=== PATIENT | female | born 1960 | race Caucasian/White ===

== ENCOUNTER 2018-04-30 20:57 | Observation (INO) | payer MEDICARE, BC ==
[2018-05-01 00:18] VITALS: BMI 26.6
[2018-05-01] MEDS ORDERED: NITROGLYCERIN SL TABS 0.4 MG TAB SUBLINGUAL PRN ×2 (00:40→09:19)
[2018-05-01] MEDS ORDERED: MORPHINE SULFATE 2 MG/ML SYRINGE IVP PRN (00:55)
[2018-05-01] MEDS ORDERED: HYDROcodone/APAP 7.5-325MG 1 EACH TAB PO PRN (01:13)
[2018-05-01] MEDS: HEPARIN SOD,PORK IN 0.45% NACL 25,000 UNIT in 0.45% NACL 1 250ML.BAG IV SCH (01:54)
[2018-05-01] MEDS: NICOTINE 14MG/24HR PATCH TRANSDERM SCH ×2 (01:54→09:26)
[2018-05-01] MEDS: levETIRAcetam 500 MG TAB PO SCH ×2 (01:54→19:32)
[2018-05-01 07:11] LABS: Basophils # (A) 0.1 k/uL (0-0.2); Basophils % (A) 1 %; Eosinophils # (A) 0.2 k/uL (0-0.7); Eosinophils % (A) 3 %; HCT 47.1 % (34.0-46.0); HGB 15.8 gm/dL (11.4-16.0); Lymphocytes # (A) 3.7 k/uL (1.0-4.8); Lymphocytes % (A) 52 %; MCH 30.4 pg (25.0-35.0); MCHC 33.6 g/dL (31.0-37.0); MCV 90.5 fL (80.0-100.0); Mean Platelet Volume 7.3; Monocytes # (A) 0.4 k/uL (0-1.0); Monocytes % (A) 5 %; Neutrophils # (A) 2.6 k/uL (1.3-7.7); Neutrophils % (A) 36 %; Platelet Count 298 k/uL (150-450); WBC 7.1 k/uL (3.8-10.6)
[2018-05-01 07:24] LABS: Albumin 4.1 g/dL (3.5-5.0); Calcium 9.8 mg/dL (8.4-10.2); Total Bilirubin 0.4 mg/dL (0.2-1.3); Total Protein 6.6 g/dL (6.3-8.2)
--- NOTE | 2018-05-01 09:16 | P.CRDCN ---
History of Present Illness Consult reason: chest pain (at rest) History of present illness: 57-year-old female presenting with chest discomfort and bilateral arm discomfort that woke her up and was relieved with the first nitroglycerin fairly quickly,@[facility], [place] Shortness of breath with moderate exertion like shoveling snow but no discomfort at that time. This occurred a few weeks back History of elevated triglycerides almost upper thousand History of pancreatitis History of seizures, staring spells, history of intracranial aneurysms status post coiling 2 Current smoker No alcohol use Pain-free at this time Normal stress test last, Lexiscan Examination is normal heart sounds are normal breath sounds are clear Normal blood pressure normal heart rate 0.[address] depression lateral precordial leads Impression Angina at rest Hypertriglyceridemia with a history of pancreatitis Normal cardiac enzymes No definite ST segment abnormalities but there is a 0.[address] depression on the ECG Current smoker Plan Lipid panel Atorvastatin 40 mg by mouth daily Aspirin Coronary angiography was discussed. Stress testing was discussed. I would recommend coronary angiography and the patient is agreeable based on her symptoms Past Medical History Past Medical History: Coronary Artery Disease (CAD), COPD, CVA/TIA, Deep Vein Thrombosis (DVT), GERD/Reflux, Hyperlipidemia, Memory Impairment, Seizure Disorder Additional Past Medical History / Comment(s): States had 2-3 TIAs during aneurysm surgery, aneurysm clips x2. No sense of smell or taste since surgery. Pt states she does not know last time she had a seizure. History of Any Multi-Drug Resistant Organisms: None Reported Past Surgical History: Cholecystectomy, Hysterectomy, Tonsillectomy Additional Past Surgical History / Comment(s): BRAIN ANEURYSM SURGERY 1999. RIGHT LEG SURGERY. Past Anesthesia/Blood Transfusion Reactions: Postoperative Nausea & Vomiting ( PONV) Past Psychological History: Depression Smoking Status: Current every day smoker Past Alcohol Use History: None Reported Additional Past Alcohol Use History / Comment(s): Has smoked 1 PPD for 40 years. Past Drug Use History: None Reported - Past Family History Father Family Medical History: Chest Pain / Angina, Congestive Heart Failure (CHF), Deep Vein Thrombosis (DVT), Myocardial Infarction ([place]) Mother Family Medical History: Deep Vein Thrombosis (DVT), Renal Disease Medications and Allergies Home Medications Medication Instructions Recorded Confirmed Type Clopidogrel Bisulfate [Plavix] 75 mg PO DAILY 03/06/16 04/30/18 History Pantoprazole Sodium [Protonix] 40 mg PO DAILY 03/06/16 04/30/18 History HYDROcodone/APAP 7.5-325MG [[place] 1 tab PO TID PRN 03/21/16 04/30/18 History 7.5-325] Ibuprofen [Advil] 200 - 800 mg PO Q8HR PRN 03/21/16 04/30/18 History Budesonide/Formoterol Fumarate 2 puff INHALATION BID 04/30/18 05/01/18 History [Symbicort 80-4.5 Mcg Inhaler] Cholecalciferol (Vitamin D3) 5,000 units PO DAILY 04/30/18 04/30/18 History [Vitamin D3] Indapamide 2.5 mg PO DAILY 04/30/18 04/30/18 History Meloxicam 15 mg PO DAILY 04/30/18 04/30/18 History Montelukast [Singulair] 10 mg PO HS 04/30/18 04/30/18 History Rosuvastatin [Crestor] 20 mg PO DAILY 04/30/18 04/30/18 History levETIRAcetam [Keppra] 1,000 mg PO HS 05/01/18 04/30/18 History Allergies Allergy/AdvReac Type Severity Reaction Status Date / Time cortisone Allergy Unknown Verified 04/30/18 23:51 gabapentin [From Neurontin] Allergy Unknown Verified 04/06/16 08:14 hydrochlorothiazide Allergy Rash/Hives Verified 04/06/16 08:14 [From Dyazide] hydroxyzine Allergy Rash/Hives Verified 04/06/16 08:14 levofloxacin Allergy Rash/Hives Verified 04/30/18 23:51 Penicillins Allergy Rash/Hives Verified 04/06/16 08:14 Sulfa (Sulfonamide Allergy Rash/Hives Verified 04/06/16 08:14 Antibiotics) triamterene [From Dyazide] Allergy Unknown Verified 04/06/16 08:14 varenicline [From Chantix] Allergy Rash/Hives Verified 04/06/16 08:14 LUPIN Allergy Rash/Hives Uncoded 04/06/16 08:14 Physical Exam Vitals: Vital Signs Temp Pulse Resp BP Pulse Ox 05/01/18 04:00 60 15 111/68 96 05/01/18 00:00 58 L 15 04/30/18 23:48 97.7 F 58 L 16 130/77 95 Intake and Output 04/30/18 05/01/18 05/01/18 22:59 06:59 14:59 Other: Voiding Method Toilet # Voids 1 Weight 72.6 kg Results 05/01/18 05:17 05/01/18 05:17 Cardiac Enzymes 05/01/18 05/01/18 05/01/18 Range/Units 00:48 05:17 05:17 AST 33 (14-36) U/L Troponin I <0.012 <0.012 (0.000-0.034) ng/mL Coagulation 05/01/18 Range/Units 00:48 APTT 28.5 (22.0-30.0) sec CBC 05/01/18 Range/Units 05:17 WBC 7.1 (3.8-10.6) k/uL RBC 5.20 (3.80-5.40) m/uL Hgb 15.8 (11.4-16.0) gm/dL Hct 47.1 H (34.0-46.0) % Plt Count 298 (150-450) k/uL Comprehensive Metabolic Panel 05/01/18 Range/Units 05:17 Sodium 140 (137-145) mmol/L Potassium 4.0 (3.5-5.1) mmol/L Chloride 106 (98-107) mmol/L Carbon Dioxide 26 (22-30) mmol/L BUN 18 H (7-17) mg/dL Creatinine 0.90 (0.52-1.04) mg/dL Glucose 86 (74-99) mg/dL Calcium 9.8 (8.4-10.2) mg/dL AST 33 (14-36) U/L ALT 39 (9-52) U/L Alkaline Phosphatase 114 (38-126) U/L Total Protein 6.6 (6.3-8.2) g/dL Albumin 4.1 (3.5-5.0) g/dL Current Medications Generic Name Dose Route Start Last Admin Trade Name Freq PRN Reason Stop Dose Admin Hydrocodone Bitart/Acetaminophen 1 each 05/01/18 01:13 [place] 7.5-325 PO TID PRN Pain Budesonide/Formoterol Fumarate 2 puff 05/01/18 09:00 Symbicort 80-4.5 Mcg Inhaler INHALATION BID [facility] Heparin Sodium/Sodium Chloride 250 mls @ 8.71 mls/hr 05/01/18 02:00 05/01/18 01:54 25,000 unit/ Sodium Chloride IV 12 units/kg/hr .Q24H [facility] 8.71 mls/hr Administration Protocol 12 UNITS/KG/HR Levetiracetam 1,000 mg 05/01/18 01:30 05/01/18 01:54 Keppra PO 1,000 mg HS [facility] Administration Morphine Sulfate 2 mg 05/01/18 00:55 Morphine Sulfate (Inj) IVP Q4H PRN Chest Pain Nicotine 1 patch 05/01/18 01:30 05/01/18 01:54 Habitrol 14mg/24hr Patch TRANSDERM 1 patch DAILY [facility] Administration Nitroglycerin 0.4 mg 05/01/18 00:40 Nitrostat SUBLINGUAL Q5M PRN Chest Pain Intake and Output 04/30/18 05/01/18 05/01/18 22:59 06:59 14:59 Other: Voiding Method Toilet # Voids 1 Weight 72.6 kg 05/01/18 05:17 05/01/18 05:17
[2018-05-01] MEDS: SYMBICORT 80-4.5 MCG INHALER INHALATION SCH ×2 (09:17→20:47)
[2018-05-01] MEDS ORDERED: SODIUM CHLORIDE 0.9% 1,000 ML in EMPTY BAG 1 BAG IV ONE (09:19)
[2018-05-01] MEDS ORDERED: ATORVASTATIN 80 MG TAB PO STA (09:19)
[2018-05-01] MEDS ORDERED: ALPRAZolam 0.5 MG TAB PO PRN (09:19)
[2018-05-01] MEDS ORDERED: ALPRAZolam 0.25 MG TAB PO PRN (09:19)
[2018-05-01] MEDS ORDERED: ASPIRIN 325 MG TAB PO STA (09:19)
--- NOTE | 2018-05-01 09:19 | P.CRDCN ---
History of Present Illness Consult date: 05/01/18 Requesting physician: Yoandy E Noy Consult reason: chest pain Chief complaint: Chest pain History of present illness: This is a pleasant 57-year-old female with history of hyperlipidemia, strong family history of premature coronary artery disease in her brother, history of nicotine dependence, history of pancreatitis, no history of EtOH use. history of seizures, history of prior brain aneurysm 2 with coiling procedure done. Patient does also have history of seizures in the past, she is on Keppra. According to the patient, approximately 2 weeks ago, she was out [employer], she states that she developed a sudden onset of shortness of breath, she went into the house to sit down and relax, after about 5-10 minutes she felt better [email or web address] She did this on 3 separate occasions, each time developing symptoms of significant exertional dyspnea relieved with rest. Yesterday, patient states that she developed a discomfort in both of her arms and shoulders, they felt extremely heavy. She did call her brother who advised her to go to the emergency room for further evaluation and treatment. She went to [facility], EKG performed there showed normal sinus rhythm with nonspecific ST-T wave changes noted in the lateral leads. Patient was given one sublingual nitroglycerin on arrival and symptoms dissipated. Chest x-ray did not reveal any acute changes, CTA of the chest did not reveal any evidence of pulmonary embolism. CT of the brain was also performed which did not reveal any acute abnormality. 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 Previous aneurysm clipping. Patient did undergo a stress test in December of last year, which was negative for any reversible ischemia, the results of that of which are in the chart. Laboratory data at [place] was reviewed, sodium 143, potassium 3.8, BUN 20, creatinine 1.1, troponin 0.017, white blood cell count is normal hemoglobin 16.1 platelet count 326, d-dimer negative BNP normal. The patient was transferred here for further evaluation and treatment. EKG performed on arrival here showed a normal sinus rhythm with no acute changes. Blood pressure 130/70 with a heart rate in the 60s, 96% on room air. White blood cell count is normal, hemoglobin 15.8, platelet count 298. Sodium 140, potassium 4.0, BUN 18, creatinine 0.9. Troponins here are negative 2. At the time of my examination this morning she is currently chest pain-free. Past Medical History Past Medical History: Coronary Artery Disease (CAD), COPD, CVA/TIA, Deep Vein Thrombosis (DVT), GERD/Reflux, Hyperlipidemia, Memory Impairment, Seizure Disorder Additional Past Medical History / Comment(s): States had 2-3 TIAs during aneurysm surgery, aneurysm clips x2. No sense of smell or taste since surgery. Pt states she does not know last time she had a seizure. History of Any Multi-Drug Resistant Organisms: None Reported Past Surgical History: Cholecystectomy, Hysterectomy, Tonsillectomy Additional Past Surgical History / Comment(s): BRAIN ANEURYSM SURGERY 1999. RIGHT LEG SURGERY. Past Anesthesia/Blood Transfusion Reactions: Postoperative Nausea & Vomiting ( PONV) Past Psychological History: Depression Smoking Status: Current every day smoker Past Alcohol Use History: None Reported Additional Past Alcohol Use History / Comment(s): Has smoked 1 PPD for 40 years. Past Drug Use History: None Reported - Past Family History Father Family Medical History: Chest Pain / Angina, Congestive Heart Failure (CHF), Deep Vein Thrombosis (DVT), Myocardial Infarction ([place]) Mother Family Medical History: Deep Vein Thrombosis (DVT), Renal Disease Medications and Allergies Home Medications Medication Instructions Recorded Confirmed Type Clopidogrel Bisulfate [Plavix] 75 mg PO DAILY 03/06/16 04/30/18 History Pantoprazole Sodium [Protonix] 40 mg PO DAILY 03/06/16 04/30/18 History HYDROcodone/APAP 7.5-325MG [[place] 1 tab PO TID PRN 03/21/16 04/30/18 History 7.5-325] Ibuprofen [Advil] 200 - 800 mg PO Q8HR PRN 03/21/16 04/30/18 History Budesonide/Formoterol Fumarate 2 puff INHALATION BID 04/30/18 05/01/18 History [Symbicort 80-4.5 Mcg Inhaler] Cholecalciferol (Vitamin D3) 5,000 units PO DAILY 04/30/18 04/30/18 History [Vitamin D3] Indapamide 2.5 mg PO DAILY 04/30/18 04/30/18 History Meloxicam 15 mg PO DAILY 04/30/18 04/30/18 History Montelukast [Singulair] 10 mg PO HS 04/30/18 04/30/18 History Rosuvastatin [Crestor] 20 mg PO DAILY 04/30/18 04/30/18 History levETIRAcetam [Keppra] 1,000 mg PO HS 05/01/18 04/30/18 History Allergies Allergy/AdvReac Type Severity Reaction Status Date / Time cortisone Allergy Unknown Verified 04/30/18 23:51 gabapentin [From Neurontin] Allergy Unknown Verified 04/06/16 08:14 hydrochlorothiazide Allergy Rash/Hives Verified 04/06/16 08:14 [From Dyazide] hydroxyzine Allergy Rash/Hives Verified 04/06/16 08:14 levofloxacin Allergy Rash/Hives Verified 04/30/18 23:51 Penicillins Allergy Rash/Hives Verified 04/06/16 08:14 Sulfa (Sulfonamide Allergy Rash/Hives Verified 04/06/16 08:14 Antibiotics) triamterene [From Dyazide] Allergy Unknown Verified 04/06/16 08:14 varenicline [From Chantix] Allergy Rash/Hives Verified 04/06/16 08:14 LUPIN Allergy Rash/Hives Uncoded 04/06/16 08:14 Physical Exam Vitals: Vital Signs Temp Pulse Resp BP Pulse Ox 05/01/18 04:00 60 15 111/68 96 05/01/18 00:00 58 L 15 04/30/18 23:48 97.7 F 58 L 16 130/77 95 Intake and Output 04/30/18 05/01/18 05/01/18 22:59 06:59 14:59 Other: Voiding Method Toilet # Voids 1 Weight 72.6 kg PHYSICAL EXAMINATION: GENERAL: 57-year-old female in no acute distress at the time of my examination HEENT: Head is atraumatic, normocephalic. Pupils equal, round. Sclera anicteric. Conjunctiva are clear. Mucous membranes of the mouth are moist. Neck is supple. There is no elevated jugular venous pressure. No carotid bruit is heard. HEART EXAMINATION: Heart S1, S2 normal. No murmur or gallop heard. CHEST EXAMINATION: Lungs are clear with some fine expiratory wheezes noted ABDOMEN: Soft, nontender. Bowel sounds are heard. No organomegaly noted. EXTREMITIES: 2+ peripheral pulses with no evidence of peripheral edema and no calf tenderness noted. NEUROLOGIC patient is awake, alert and oriented 3 . . Results 05/01/18 05:17 05/01/18 05:17 Cardiac Enzymes 05/01/18 05/01/18 05/01/18 Range/Units 00:48 05:17 05:17 AST 33 (14-36) U/L Troponin I <0.012 <0.012 (0.000-0.034) ng/mL Coagulation 05/01/18 Range/Units 00:48 APTT 28.5 (22.0-30.0) sec CBC 05/01/18 Range/Units 05:17 WBC 7.1 (3.8-10.6) k/uL RBC 5.20 (3.80-5.40) m/uL Hgb 15.8 (11.4-16.0) gm/dL Hct 47.1 H (34.0-46.0) % Plt Count 298 (150-450) k/uL Comprehensive Metabolic Panel 05/01/18 Range/Units 05:17 Sodium 140 (137-145) mmol/L Potassium 4.0 (3.5-5.1) mmol/L Chloride 106 (98-107) mmol/L Carbon Dioxide 26 (22-30) mmol/L BUN 18 H (7-17) mg/dL Creatinine 0.90 (0.52-1.04) mg/dL Glucose 86 (74-99) mg/dL Calcium 9.8 (8.4-10.2) mg/dL AST 33 (14-36) U/L ALT 39 (9-52) U/L Alkaline Phosphatase 114 (38-126) U/L Total Protein 6.6 (6.3-8.2) g/dL Albumin 4.1 (3.5-5.0) g/dL Current Medications Generic Name Dose Route Start Last Admin Trade Name Freq PRN Reason Stop Dose Admin Hydrocodone Bitart/Acetaminophen 1 each 05/01/18 01:13 [place] 7.5-325 PO TID PRN Pain Budesonide/Formoterol Fumarate 2 puff 05/01/18 09:00 Symbicort 80-4.5 Mcg Inhaler INHALATION BID [facility] Heparin Sodium/Sodium Chloride 250 mls @ 8.71 mls/hr 05/01/18 02:00 05/01/18 01:54 25,000 unit/ Sodium Chloride IV 12 units/kg/hr .Q24H [facility] 8.71 mls/hr Administration Protocol 12 UNITS/KG/HR Levetiracetam 1,000 mg 05/01/18 01:30 05/01/18 01:54 Keppra PO 1,000 mg HS [facility] Administration Morphine Sulfate 2 mg 05/01/18 00:55 Morphine Sulfate (Inj) IVP Q4H PRN Chest Pain Nicotine 1 patch 05/01/18 01:30 05/01/18 01:54 Habitrol 14mg/24hr Patch TRANSDERM 1 patch DAILY [facility] Administration Nitroglycerin 0.4 mg 05/01/18 00:40 Nitrostat SUBLINGUAL Q5M PRN Chest Pain Intake and Output 04/30/18 05/01/18 05/01/18 22:59 06:59 14:59 Other: Voiding Method Toilet # Voids 1 Weight 72.6 kg 05/01/18 05:17 05/01/18 05:17 EKG Interpretations (text) EKG shows normal sinus rhythm with mild ST depression noted in the lateral leads. Assessment and Plan Plan: Assessment and plan #1 chest discomfort, suggestive of unstable angina. EKG shows normal sinus rhythm with nonspecific ST-T wave changes. Troponins are negative 2 here, troponin at [place] negative. Lexiscan performed in December was negative for any reversible ischemia. #2 hypertension #3 hyperlipidemia and hypertriglyceridemia. #4 nicotine dependence #5 nondiabetic #6 history of 2 cerebral aneurysms with prior clipping procedures #7 history of TIA during those procedures #8 family history of premature coronary artery disease in her brother who required LAD stenting in his 50s. #9 depression #10 history of seizures #11 COPD Plan We will obtain an echocardiogram with Doppler study. Continue Crestor, aspirin , Plavix, patient has been advised to undergo cardiac catheterization for more definitive diagnosis. The risks and the benefits were explained to her in detail. Further recommendations will be based on these findings and patient's clinical course. DNP note has been reviewed, I agree with a documented findings and plan of care. Patient was seen and examined.
[2018-05-01] MEDS: ATORVASTATIN 80 MG TAB PO SCH (09:44)
[2018-05-01] MEDS: CLOPIDOGREL 75 MG TAB PO SCH (09:44)
[2018-05-01] MEDS ORDERED: HEPARIN SODIUM,PORCINE 5,000 UNIT/ML 1 ML VIAL IV STA (10:43)
--- NOTE | 2018-05-01 11:15 | P.HPIM ---
History of Present Illness 57-year-old female came in with complaints of a bilateral shoulder pain restarted yesterday woke up from pain sharp in nature patient appears to have some ST depressions because of which the cardiology is concerned about unstable angina and patient is going for cardiac catheterization today. Patient has constant chest pain moderate severity nonradiating not associated with food not has some lightheadedness denied any diaphoresis not nonpruritic. He shouldn't the pain started early in the morning and continued until she was seen in [facility] where she was given nitro which appears to have helped a little bit patient does have neck issues in the past. Patient denied any fever chills cough chest x-ray did not show any pneumonic process CT of the brain was performed not sure why which did not show any significant abnormality CT angios the chest was essentially within normal limits and does have history of seizures for which she is on [facility] Review of Systems REVIEW OF SYSTEMS: CONSTITUTIONAL: No fever, no malaise, no fatigue. HEENT: No recent visual problems or hearing problems. Denied any sore throat. CARDIOVASCULAR: No orthopnea, PND, no palpitations, no syncope. PULMONARY: No shortness of breath, no cough, no hemoptysis. GASTROINTESTINAL: No diarrhea, no nausea, no vomiting, no abdominal pain. NEUROLOGICAL: No headaches, no weakness, no numbness. HEMATOLOGICAL: Denies any bleeding or petechiae. GENITOURINARY: Denies any burning micturition, frequency, or urgency. MUSCULOSKELETAL/RHEUMATOLOGICAL: Denies any joint pain, swelling, or any muscle pain. ENDOCRINE: Denies any polyuria or polydipsia. The rest of the 14-point review of systems is negative. Past Medical History Past Medical History: Coronary Artery Disease (CAD), COPD, CVA/TIA, Deep Vein Thrombosis (DVT), GERD/Reflux, Hyperlipidemia, Memory Impairment, Seizure Disorder Additional Past Medical History / Comment(s): States had 2-3 TIAs during aneurysm surgery, aneurysm clips x2. No sense of smell or taste since surgery. Pt states she does not know last time she had a seizure. History of Any Multi-Drug Resistant Organisms: None Reported Past Surgical History: Cholecystectomy, Hysterectomy, Tonsillectomy Additional Past Surgical History / Comment(s): BRAIN ANEURYSM SURGERY 1999. RIGHT LEG SURGERY. Past Anesthesia/Blood Transfusion Reactions: Postoperative Nausea & Vomiting ( PONV) Past Psychological History: Depression Smoking Status: Current every day smoker Past Alcohol Use History: None Reported Additional Past Alcohol Use History / Comment(s): Has smoked 1 PPD for 40 years. Past Drug Use History: None Reported - Past Family History Father Family Medical History: Chest Pain / Angina, Congestive Heart Failure (CHF), Deep Vein Thrombosis (DVT), Myocardial Infarction ([place]) Mother Family Medical History: Deep Vein Thrombosis (DVT), Renal Disease Medications and Allergies Home Medications Medication Instructions Recorded Confirmed Type Clopidogrel Bisulfate [Plavix] 75 mg PO DAILY 03/06/16 05/01/18 History HYDROcodone/APAP 7.5-325MG [[place] 1 tab PO TID PRN 03/21/16 05/01/18 History 7.5-325] Indapamide 2.5 mg PO DAILY 04/30/18 05/01/18 History Meloxicam 15 mg PO DAILY 04/30/18 05/01/18 History Montelukast [Singulair] 10 mg PO HS 04/30/18 05/01/18 History Rosuvastatin [Crestor] 20 mg PO DAILY 04/30/18 05/01/18 History QUEtiapine [SEROquel] 50 mg PO HS 05/01/18 05/01/18 History Triamcinolone 0.1% Cream [Kenalog 1 applicatio TOPICAL BID 05/01/18 05/01/18 History 0.1% Cream] levETIRAcetam [Keppra] 1,000 mg PO HS 05/01/18 05/01/18 History traZODone HCL [Desyrel] 100 mg PO HS 05/01/18 05/01/18 History Allergies Allergy/AdvReac Type Severity Reaction Status Date / Time cortisone Allergy Unknown Verified 05/01/18 10:14 gabapentin [From Neurontin] Allergy Unknown Verified 05/01/18 10:14 hydrochlorothiazide Allergy Rash/Hives Verified 05/01/18 10:14 [From Dyazide] hydroxyzine Allergy Rash/Hives Verified 05/01/18 10:14 levofloxacin Allergy Rash/Hives Verified 05/01/18 10:14 Penicillins Allergy Rash/Hives Verified 05/01/18 10:14 Sulfa (Sulfonamide Allergy Rash/Hives Verified 05/01/18 10:14 Antibiotics) triamterene [From Dyazide] Allergy Unknown Verified 05/01/18 10:14 varenicline [From Chantix] Allergy Rash/Hives Verified 05/01/18 10:14 LUPIN Allergy Rash/Hives Uncoded 04/06/16 08:14 Physical Exam Vitals: Vital Signs Temp Pulse Resp BP Pulse Ox 05/01/18 10:55 98.3 F 73 16 123/73 93 L 05/01/18 08:00 97.9 F 63 16 142/77 95 05/01/18 04:00 60 15 111/68 96 05/01/18 00:00 58 L 15 04/30/18 23:48 97.7 F 58 L 16 130/77 95 Intake and Output 04/30/18 05/01/18 05/01/18 22:59 06:59 14:59 Intake Total 76.213 Balance 76.213 Intake: Intake, IV Titration 76.213 Amount Heparin Sod,Pork in 0.45% 76.213 NaCl 25,000 unit In 0.45 % NaCl 1 250ml.bag @ 12 UNITS/KG/HR 8.71 mls/hr IV .Q24H [facility] Rx#: [id number] Other: Voiding Method Toilet Toilet # Voids 1 Weight 72.6 kg PHYSICAL EXAMINATION: GENERAL: The patient is alert and oriented x3, not in any acute distress. Well developed, well nourished. HEENT: Pupils are round and equally reacting to light. EOMI. No scleral icterus. No conjunctival pallor. Normocephalic, atraumatic. No pharyngeal erythema. No thyromegaly. CARDIOVASCULAR: S1 and S2 present. No murmurs, rubs, or gallops. PULMONARY: Chest is clear to auscultation, no wheezing or crackles. ABDOMEN: Soft, nontender, nondistended, normoactive bowel sounds. No palpable organomegaly. MUSCULOSKELETAL: No joint swelling or deformity. EXTREMITIES: No cyanosis, clubbing, or pedal edema. NEUROLOGICAL: Gross neurological examination did not reveal any focal deficits. SKIN: No rashes. Results CBC & Chem 7: 05/01/18 05:17 05/01/18 05:17 Labs: Abnormal Lab Results - Last 24 Hours (Table) 12/27/18 12/27/18 12/27/18 Range/Units 05:17 05:17 09:18 Hct 47.1 H (34.0-46.0) % APTT 35.7 H (22.0-30.0) sec BUN 18 H (7-17) mg/dL Thrombosis Risk Factor Assmnt - Choose All That Apply Any of the Below Risk Factors Present?: Yes Each Factor Represents 1 point: Abnormal pulmonary function (COPD), Age 41-60 years Other Risk Factors: Yes Each Risk Factor Represents 3 Points: Family history of DVT/PE, History of DVT/ PE Other congenital or acquired thrombophilia - If yes, enter type in comment: No Thrombosis Risk Factor Assessment Total Risk Factor Score: 8 Thrombosis Risk Factor Assessment Level: High Risk Assessment and Plan Plan: Chest pain with EKG changes ST depressions because of concerning for unstable angina patient is going for cardiac catheterization today patient's troponins were negative, Lexiscan that was done month of and negative for reversible ischemia, plan is to can you with antiplatelet therapy chronic catheterization today further management depending on the cardiac catheterization results -Hypertension -Hyperlipidemia -Nicotine dependence counseling was provided regarding this -History of TIA in the past with the cerebral aneurysms and clipping in the past -Depression -History of seizures continue with her home medications -COPD without any acute exacerbation -Chronic neck pain and degenerative joint disease
[2018-05-01] MEDS ORDERED: IV FLUID CONTINUATION 900 ML IV ONE (12:05)
[2018-05-01] MEDS ORDERED: MIDAZOLAM 2 MG/2 ML VIAL IV ONE (12:23)
[2018-05-01] MEDS ORDERED: fentaNYL (PF) 50 MCG/ML 2 ML AMP IV ONE (12:23)
[2018-05-01] MEDS ORDERED: LIDOCAINE 1% INJ 10MG/ML (20 ML MDV) SQ ONE ×2 (12:24)
[2018-05-01] MEDS ORDERED: IOPAMIDOL-370 125ML BTL INJ ONE (12:36)
[2018-05-01] MEDS ORDERED: RX INFO: IV CONTRAST WAS GIVEN 1 EACH MISC MISCELLANE PRN (12:41)
--- NOTE | 2018-05-01 12:46 | P.CARDCATH ---
Date of Procedure: 05/01/18 Preoperative Diagnosis: Unstable angina Postoperative Diagnosis: Normal coronary arteries Operative Findings: HISTORY: This is a 57-year-old female with multiple risk factors who was admitted to the hospital with chest pains suggestive of unstable angina. Patient was evaluated by Dr. Londono and a cardiac catheterization is requested for further diagnosis. CONSENT:I have discussed the risks, benefits and alternative therapies for the above-mentioned procedure and for both sedation/analgesia as well as necessary blood product administration, if indicated, as they pertain to this patient. The patient has indicated understanding and acceptance of the risks and procedures discussed. PROCEDURE: Patient was brought to the lab in a fasting state. Patient was given some IV sedation. The right groin is infiltrated with lidocaine and right femoral artery was entered using Seldinger technique. A 6-Bhutanese catheter was left in place and selective coronary arteriography and left ventriculography was performed. Patient tolerated the procedure well. Femoral angiogram was performed and Angio-Seal was applied for hemostasis. No immediate complications were noted and patient was transferred to [facility] in a stable condition Conscious Sedation: Versed 1mg Fentanyl 25 g Duration 19minutes HEMODYNAMICS: The aortic pressure is about 137/88. Left ankle end-diastolic pressure is about 8. There was no gradient across the aortic valve SELECTIVE CORONARY ARTERIOGRAPHY: LEFT MAIN: Normal length and free of occlusive disease THE LEFT ANTERIOR DESCENDING CORONARY ARTERY:. This is a fair caliber vessel giving rise to small diagonal septal branches. The LAD reaches the apex and wraps around it. There is no obstructive disease in the LAD THE LEFT CIRCUMFLEX AND IS CORONARY ARTERY:. This is a moderate caliber vessel giving rise to 2 OM branches and seemed to be codominant free of any occlusive disease THE RIGHT CORONARY ARTERY:. This is a codominant vessel giving rise to good-sized PDA and PLV. Free of any occlusive disease LEFT VENTRICULOGRAPHY:. This revealed normal-sized cardiac silhouette with good systolic function without any segmental wall motion defects FINAL IMPRESSION: Normal coronary arteries. Normal LV function PLAN:. Symptomatically medical therapy and evaluation for the source of pain PROGNOSIS:. Good
[2018-05-01] MEDS: SODIUM CHLORIDE 0.9% 1,000 ML IV SCH (16:02)
--- NOTE | 2018-05-01 19:36 | ECHOF ---
Referral Reason:chest pain MEASUREMENTS -------- HEIGHT: 165.1 cm WEIGHT: 72.6 kg BP: RVIDd: 2.9 cm (< 3.3) IVSd: 1.0 cm (0.6 - 1.1) LVIDd: 4.3 cm (3.9 - 5.3) LVPWd: 1.0 cm (0.6 - 1.1) IVSs: 1.5 cm LVIDs: 2.4 cm LVPWs: 1.6 cm LAESV Index (A-L): 18.41 ml/m Ao Diam: 3.6 cm (2.0 - 3.7) AV Cusp: 1.8 cm (1.5 - 2.6) LA Diam: 3.1 cm (2.7 - 3.8) MV EXCURSION: 15.618 mm (> 18.000) MV EF SLOPE: 88 mm/s (70 - 150) EPSS: 0.8 cm MV E Sony: 0.47 m/s MV DecT: 277 ms MV A Sony: 0.79 m/s MV E/A Ratio: 0.60 RAP: 15.00 mmHg RVSP: 18.15 mmHg FINDINGS -------- Sinus rhythm. This was a technically good study. The left ventricular size is normal. Left ventricular wall thickness is normal. Overall left vent ricular systolic function is low-normal with, an EF between 50 - 55 %. The right ventricle is normal in size and function. The left atrium is normal in size. The right atrium is normal in size. The aortic valve is trileaflet, and appears structurally normal. No aortic stenosis or regurgitation. The mitral valve leaflets are mildly thickened. There is trace mitral regurgitation. Trace tricuspid regurgitation present. The right ventricular systolic pressure, as measured by Dopp ler, is 18.15mmHg. Pulmonic valve appears structurally normal. The aortic root size is normal. The inferior vena cava is mildly dilated. The pericardium is normal. CONCLUSIONS -------- 1. Sinus rhythm. 2. This was a technically good study. 3. The left ventricular size is normal. 4. Left ventricular wall thickness is normal. 5. Overall left ventricular systolic function is low-normal with, an EF between 50 - 55 %. 6. The right ventricle is normal in size and function. 7. The left atrium is normal in size. 8. The right atrium is normal in size. 9. The aortic valve is trileaflet, and appears structurally normal. No aortic stenosis or regurgitati on. 10. The mitral valve leaflets are mildly thickened. 11. There is trace mitral regurgitation. 12. Trace tricuspid regurgitation present. 13. The right ventricular systolic pressure, as measured by Doppler, is 18.15mmHg. 14. Pulmonic valve appears structurally normal. 15. The aortic root size is normal. 16. The inferior vena cava is mildly dilated. 17. The pericardium is normal. VPK TEACHER: Lima Pisano RDCS
[2018-05-01 19:41] VITALS: RESP 18
[2018-05-01] MEDS ORDERED: MONTELUKAST 10 MG TAB PO SCH (21:00)
[2018-05-02] MEDS: SODIUM CHLORIDE 0.9% 1,000 ML IV SCH (02:53)
[2018-05-02] MEDS: HEPARIN SOD,PORK IN 0.45% NACL 25,000 UNIT in 0.45% NACL 1 250ML.BAG IV SCH (02:53)
[2018-05-02 07:13] LABS: Cholesterol 114 mg/dL (<200); HDL Cholesterol 39 mg/dL (40-60); LDL Cholesterol,Calculated 30 mg/dL (0-99); Triglycerides 225 mg/dL (<150)
[2018-05-02] MEDS ORDERED: PANTOPRAZOLE 40 MG TABLET PO SCH (07:30)
[2018-05-02] MEDS: CLOPIDOGREL 75 MG TAB PO SCH (08:33)
[2018-05-02] MEDS: ATORVASTATIN 80 MG TAB PO SCH (08:33)
[2018-05-02] MEDS: NICOTINE 14MG/24HR PATCH TRANSDERM SCH (08:33)
[2018-05-02] MEDS: SYMBICORT 80-4.5 MCG INHALER INHALATION SCH (08:35)
[2018-05-02] MEDS ORDERED: ASPIRIN 81 MG PO SCH (09:00)
[2018-05-02 09:48] VITALS: BP 115/72; PULSE 75; TEMP 97.8
--- NOTE | 2018-05-02 11:51 | P.DS ---
Providers Date of admission: 04/30/18 23:44 Attending physician: Yoandy Villafuerte MD Consults: 05/01/18 00:39 Consult Physician Routine Consulting Provider: Matt Byers Consult Reason/Comments: unstable angina Do you want consulting provider notified?: Yes, Notify in am Primary care physician: Stated None Hospital Course: 57-year-old female admitted for chest pain patient has some history depressions there was concern for unstable angina because of which patient underwent cardiac catheterization which did not show any stent table atherosclerotic coronary vascular disease patient will be discharged today patient's pain was probably from her degenerative neck disease for which the patient will need outpatient follow-up physical therapy and a patent nonsteroidal anti- inflammatory vacations. PHYSICAL EXAMINATION: GENERAL: The patient is alert and oriented x3, not in any acute distress. Well developed, well nourished. HEENT: Pupils are round and equally reacting to light. EOMI. No scleral icterus. No conjunctival pallor. Normocephalic, atraumatic. No pharyngeal erythema. No thyromegaly. CARDIOVASCULAR: S1 and S2 present. No murmurs, rubs, or gallops. PULMONARY: Chest is clear to auscultation, no wheezing or crackles. ABDOMEN: Soft, nontender, nondistended, normoactive bowel sounds. No palpable organomegaly. MUSCULOSKELETAL: No joint swelling or deformity. EXTREMITIES: No cyanosis, clubbing, or pedal edema. NEUROLOGICAL: Gross neurological examination did not reveal any focal deficits. SKIN: No rashes. please refer to my dictation of H&P from yesterday for further details of hospitalization course and her other medical problems and that management Plan - Discharge Summary Discharge Rx Participant: No New Discharge Prescriptions: No Action Clopidogrel Bisulfate [Plavix] 75 mg PO DAILY HYDROcodone/APAP 7.5-325MG [[place] 7.5-325] 1 tab PO TID PRN PRN Reason: Pain Montelukast [Singulair] 10 mg PO HS Rosuvastatin [Crestor] 20 mg PO DAILY Indapamide 2.5 mg PO DAILY Meloxicam 15 mg PO DAILY levETIRAcetam [Keppra] 1,000 mg PO HS Triamcinolone 0.1% Cream [Kenalog 0.1% Cream] 1 applicatio TOPICAL BID QUEtiapine [SEROquel] 50 mg PO HS traZODone HCL [Desyrel] 100 mg PO HS Discharge Medication List Clopidogrel Bisulfate [Plavix] 75 mg PO DAILY 03/06/16 [History] HYDROcodone/APAP 7.5-325MG [[place] 7.5-325] 1 tab PO TID PRN 03/21/16 [History] Indapamide 2.5 mg PO DAILY 04/30/18 [History] Meloxicam 15 mg PO DAILY 04/30/18 [History] Montelukast [Singulair] 10 mg PO HS 04/30/18 [History] Rosuvastatin [Crestor] 20 mg PO DAILY 04/30/18 [History] QUEtiapine [SEROquel] 50 mg PO HS 05/01/18 [History] Triamcinolone 0.1% Cream [Kenalog 0.1% Cream] 1 applicatio TOPICAL BID 05/01/18 [History] levETIRAcetam [Keppra] 1,000 mg PO HS 05/01/18 [History] traZODone HCL [Desyrel] 100 mg PO HS 05/01/18 [History] Follow up Appointment(s)/Referral(s): Luis A Londono MD [STAFF PHYSICIAN] - 05/16/18 2:30 pm (See Dr. Bowden/Elly Nunez within 2 weeks.) Ema Monson PAC [REFERRING] - 05/13/18 1:00 pm (Keep previous follow up appointment, call if you would like to be seen sooner.) Patient Instructions/Handouts: *Surgery [facility] - After Heart Catheterization - Space Control Supervisor Instructions, Heart Healthy Diet (DC), Lipid Profile (GEN) Discharge Disposition: HOME SELF-CARE
--- NOTE | 2018-05-02 12:04 | P.PN ---
Subjective Progress Note Date: 05/02/18 This is a pleasant 57-year-old female with history of hyperlipidemia, strong family history of premature coronary artery disease in her brother, history of nicotine dependence, history of pancreatitis, no history of EtOH use. history of seizures, history of prior brain aneurysm 2 with coiling procedure done. Patient does also have history of seizures in the past, she is on Keppra. 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 She did this on 3 separate occasions, each time developing symptoms of significant exertional dyspnea relieved with rest. Yesterday, patient states that she developed a discomfort in both of her arms and shoulders, they felt extremely heavy. She did call her brother who advised her to go to the emergency room for further evaluation and treatment. She went to [facility], EKG performed there showed normal sinus rhythm with nonspecific ST-T wave changes noted in the lateral leads. Patient was given one sublingual nitroglycerin on arrival and symptoms dissipated. Chest x-ray did not reveal any acute changes, CTA of the chest did not reveal any evidence of pulmonary embolism. CT of the brain was also performed which did not reveal any acute abnormality. 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 Previous aneurysm clipping. Patient did undergo a stress test in December of last year, which was negative for any reversible ischemia, the results of that of which are in the chart. Laboratory data at [facility] was reviewed, sodium 143, potassium 3.8, BUN 20, creatinine 1.1, troponin 0.017, white blood cell count is normal hemoglobin 16.1 platelet count 326, d-dimer negative BNP normal. The patient was transferred here for further evaluation and treatment. EKG performed on arrival here showed a normal sinus rhythm with no acute changes. Blood pressure 130/70 with a heart rate in the 60s, 96% on room air. White blood cell count is normal, hemoglobin 15.8, platelet count 298. Sodium 140, potassium 4.0, BUN 18, creatinine 0.9. Troponins here are negative 2. At the time of my examination this morning she is currently chest pain-free. 05/02/2018 Patient was seen and examined this morning, underwent cardiac catheterization yesterday which did not reveal any significant obstructive coronary artery disease. Hemodynamically stable. Echocardiogram with Doppler study revealed a normal left ventricular systolic function. Objective - Vital Signs Vital signs: Vital Signs Temp 97.8 F 05/02/18 08:20 Pulse 75 05/02/18 08:20 Resp 18 05/02/18 08:20 BP 115/72 05/02/18 08:20 Pulse Ox 92 L 05/02/18 08:20 Intake & Output 05/01/18 05/02/18 05/02/18 18:59 06:59 18:59 Intake Total 701.213 600 240 Balance 701.213 600 240 Weight 72 kg Intake: IV 100 Intake, IV Titration 601.213 600 Amount Heparin Sod,Pork in 0.45% 76.213 NaCl 25,000 unit In 0.45 % NaCl 1 250ml.bag @ 12 UNITS/KG/HR 8.71 mls/hr IV .Q24H [facility]IS Rx#: [id number] Sodium Chloride 0.9% 1, 525 600 000 ml @ 75 mls/hr IV . [id number] LUIS Rx#:[id number] Oral 240 Other: Voiding Method Toilet # Voids 2 - Exam PHYSICAL EXAMINATION: GENERAL: 57-year-old female in no acute distress at the time of my examination HEENT: Head is atraumatic, normocephalic. Pupils equal, round. Sclera anicteric. Conjunctiva are clear. Mucous membranes of the mouth are moist. Neck is supple. There is no elevated jugular venous pressure. No carotid bruit is heard. HEART EXAMINATION: Heart S1, S2 normal. No murmur or gallop heard. CHEST EXAMINATION: Lungs are clear with some fine expiratory wheezes noted ABDOMEN: Soft, nontender. Bowel sounds are heard. No organomegaly noted. EXTREMITIES: 2+ peripheral pulses with no evidence of peripheral edema and no calf tenderness noted. Right groin soft, no evidence of any hematoma. NEUROLOGIC patient is awake, alert and oriented 3 . - Labs CBC & Chem 7: 05/01/18 05:17 05/01/18 05:17 Labs: Abnormal Lab Results - Last 24 Hours (Table) 05/02/18 Range/Units 06:15 Triglycerides 225 H (<150) mg/dL HDL Cholesterol 39 L (40-60) mg/dL Assessment and Plan Plan: Assessment and plan #1 chest discomfort, suggestive of unstable angina. EKG shows normal sinus rhythm with nonspecific ST-T wave changes. Troponins are negative 2 here, troponin at [facility] negative. Lexiscan performed in December was negative for any reversible ischemia. Status post cardiac catheterization which did not reveal any obstructive coronary artery disease. #2 hypertension #3 hyperlipidemia and hypertriglyceridemia. #4 nicotine dependence #5 nondiabetic #6 history of 2 cerebral aneurysms with prior clipping procedures #7 history of TIA during those procedures #8 family history of premature coronary artery disease in her brother who required LAD stenting in his 50s. #9 depression #10 history of seizures #11 COPD Plan From cardiology's perspective, patient may be able to be discharged home today. We'll make her a follow-up appointment to see in the office post discharge. DNP note has been reviewed, I agree with a documented findings and plan of care. Patient was seen and examined.
== END 2018-05-02 12:37 | disposition home or self-care (01) ==
LOC: 3SCARD 23:44
PROVIDERS: ADMIT Internal Medicine; ATTEND Internal Medicine
DX: R07.89 Other chest pain (principal); I10 Essential (primary) hypertension; E78.5 Hyperlipidemia, unspecified; Z71.6 Tobacco abuse counseling; J44.9 Chronic obstructive pulmonary disease, unspecified; M47.9 Spondylosis, unspecified; F32.9 Major depressive disorder, single episode, unspecified; E78.1 Pure hyperglyceridemia; F17.210 Nicotine dependence, cigarettes, uncomplicated; G40.909 Epilepsy, unspecified, not intractable, without status epilepticus; I25.110 Atherosclerotic heart disease of native coronary artery with unstable angina pectoris; K21.9 Gastro-esophageal reflux disease without esophagitis; M19.90 Unspecified osteoarthritis, unspecified site; Z79.02 Long term (current) use of antithrombotics/antiplatelets; Z79.899 Other long term (current) drug therapy; Z86.79 Personal history of other diseases of the circulatory system; Z90.710 Acquired absence of both cervix and uterus; Z86.73 Personal history of transient ischemic attack (TIA), and cerebral infarction without residual deficits; Z98.890 Other specified postprocedural states; Z82.49 Family history of ischemic heart disease and other diseases of the circulatory system
CPT/HCPCS: 96376; 96365; 96366; 94640 ×3; 93306; 93458; 80061; 80053; 84484; 85025; 85730 ×2; G0378 ×3; G0379; C1760; C1894; C1769 ×2; S4990 ×2; J2250; J1644 ×2; J2001; J3010; Q9967

== ENCOUNTER → 2020-03-04 | Outpatient (CLI) | payer MEDICARE, BC ==
[2020-03-04 10:05] VITALS: BP 123/67; PULSE 71; RESP 18; TEMP 97.8
--- NOTE | 2020-03-04 10:40 | P.GSHP ---
History of Present Illness H&P Date: 03/04/20 Chief Complaint: Abnormal left breast mammogram Kellen is a 59-year-old female seen in consultation for Ema Monson regarding a mammographic abnormality in the left breast. A bilateral mammogram was performed on 920 120. The recommendation was for a repeat diagnostic mammogram of the left breast. On the diagnostic mammogram and nodular density with internal calcifications was noted as well as a second in determining group of calcifications in the far posterior lower left breast. Stereotactic core biopsy of both areas was recommended although it was noted that it might be difficult to do a stereo biopsy of the posterior group. The reason for the mammogram was that the patient was having some bleeding from her right nipple. This occurred for approximately 3-4 days and then stopped. She has not had any since that time. However, this prompted a bilateral mammogram the results of which are noted above. Does not have any trauma or infection in the breast. She has not had any breast surgery. She has not had any breast pain. Caffeine: 3 pops per day Nicotine: 1 Pack per day for 43 years Theophylline: rare Family history: brother: Lung cancer father: prostate, colon, stomach cancers mother: skin cancer Hormonal History: menarche: 12 Ab1, miscarriage 1, age at : 21, breast fed: no menopause: hysterectomy at 39, took ovaries related to pain BCP: 5 years hormones: Premarin for approximately 21 years stopped 5 years ago Surgical history: 1. Tubal ligation appendectomy 2. Total abdominal hysterectomy 3. 2 brain aneurysms 4. gallbladder 5. right shoulder two surgeries Medical History: 1. Seizures 2. 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 HTN 4. high triglycerides 5. COPD 6. history of blood clots in her legs patient is presently on Plavix and takes Advil Social History: Nicotine: One pack per day for approximately 38 years Alcohol: Negative Drugs: Negative - Constitutional Constitutional: Denies chills, Denies fever - EENT Comment: mini strokes affected eyes Eyes: bilateral as per HPI Ears: deny: decreased hearing, tinnitus Ears, nose, mouth and throat: Reports headache - Breasts Breasts: bilateral: as per HPI - Cardiovascular Cardiovascular: Reports high blood pressure - Respiratory Comment: COPD/ smoker for 38 years - Gastrointestinal Comment: Hiatal hernia with reflux - Genitourinary (Female) Genitourinary: Denies dysuria, Denies hematuria - Menstruation Menstruation: Reports post hysterectomy - Musculoskeletal Comment: back pain - Integumentary Integumentary: Denies pruritus, Denies rash - Neurological Comment: mini strokes during brain surgery to fix aneurysms Neurological: Denies numbness, Denies weakness - Psychiatric Psychiatric: Reports anxiety, Reports depression - Endocrine Endocrine: Reports fatigue, Reports weight change - Hematologic/Lymphatic Comment: Patient is on Plavix and takes Advil does not take aspirin Hematologic/Lymphatic: Reports as per HPI - Allergic/Immunologic Allergic/Immunologic: Reports as per HPI Past Medical History Past Medical History: Coronary Artery Disease (CAD), COPD, CVA/TIA, Deep Vein Thrombosis (DVT), GERD/Reflux, Hyperlipidemia, Memory Impairment, Seizure Disorder Additional Past Medical History / Comment(s): States had 2-3 TIAs during aneurysm surgery, aneurysm clips x2. No sense of smell or taste since surgery. Pt states she does not know last time she had a seizure. History of Any Multi-Drug Resistant Organisms: None Reported Past Surgical History: Cholecystectomy, Hysterectomy, Tonsillectomy Additional Past Surgical History / Comment(s): BRAIN ANEURYSM SURGERY 1999. RIGHT LEG SURGERY. Past Anesthesia/Blood Transfusion Reactions: Postoperative Nausea & Vomiting (PONV) Past Psychological History: Depression Smoking Status: Current every day smoker Past Alcohol Use History: None Reported Additional Past Alcohol Use History / Comment(s): Has smoked 1 PPD for 40 years. Past Drug Use History: None Reported - Past Family History Father Family Medical History: Chest Pain / Angina, Congestive Heart Failure (CHF), Deep Vein Thrombosis (DVT), Myocardial Infarction (MS) Mother Family Medical History: Deep Vein Thrombosis (DVT), Renal Disease Medications and Allergies Home Medications Medication Instructions Recorded Confirmed Type Clopidogrel Bisulfate [Plavix] 75 mg PO DAILY 03/06/16 03/04/20 History HYDROcodone/APAP 7.5-325MG [[place] 1 tab PO TID PRN 03/21/16 03/04/20 History 7.5-325] Indapamide 2.5 mg PO DAILY 04/30/18 03/04/20 History Montelukast [Singulair] 10 mg PO HS 04/30/18 03/04/20 History Rosuvastatin [Crestor] 20 mg PO DAILY 04/30/18 03/04/20 History levETIRAcetam [Keppra] 1,000 mg PO HS 05/01/18 03/04/20 History Albuterol Inhaler [Ventolin Hfa 2 puff INHALATION RT-QID 03/04/20 03/04/20 History Inhaler] Cholecalciferol [Vitamin D3 (25 5,000 unit PO DAILY 03/04/20 03/04/20 History Mcg = 1000 Iu)] Doxepin HCl 50 mg PO HS 03/04/20 03/04/20 History Ibuprofen [Advil] 200 mg PO Q8HR PRN 03/04/20 03/04/20 History Multivit-Min/Iron/Folic/Lutein 1 each PO DAILY 03/04/20 03/04/20 History [Centrum Silver Women Tablet] Pantoprazole [Protonix] 40 mg PO DAILY 03/04/20 03/04/20 History Potassium Chloride 10 meq PO DAILY 03/04/20 03/04/20 History Topiramate [Topamax] 25 mg PO BID 03/04/20 03/04/20 History Allergies Allergy/AdvReac Type Severity Reaction Status Date / Time cortisone Allergy Unknown Verified 03/04/20 09:54 gabapentin [From Neurontin] Allergy Unknown Verified 03/04/20 09:54 hydrochlorothiazide Allergy Rash/Hives Verified 03/04/20 09:54 [From Dyazide] hydroxyzine Allergy Rash/Hives Verified 03/04/20 09:54 levofloxacin Allergy Rash/Hives Verified 03/04/20 09:54 Penicillins Allergy Rash/Hives Verified 03/04/20 09:54 Sulfa (Sulfonamide Allergy Rash/Hives Verified 03/04/20 09:54 Antibiotics) triamterene [From Dyazide] Allergy Unknown Verified 03/04/20 09:54 varenicline [From Chantix] Allergy Rash/Hives Verified 03/04/20 09:54 LUPIN Allergy Rash/Hives Uncoded 03/04/20 09:54 Surgical - Exam Vital Signs Temp Pulse Resp BP Pulse Ox 97.8 F 71 18 123/67 98 03/04/20 10:02 03/04/20 10:02 03/04/20 10:02 03/04/20 10:02 03/04/20 10:02 BMI 28.1 - General well developed, well nourished, no distress - Eyes normal ocular movement - ENT normal nares, no hearing loss - Neck no masses, trachea midline, no lymphadectomy - Respiratory normal respiratory effort, clear to auscultation - Cardiovascular Rhythm: regular Heart Sounds: normal: S1, S2 - Abdomen Abdomen: soft, non tender, no guarding, no rigid, no rebound - Integumentary normal turgor - Neurologic no disoriented, no combative - Musculoskeletal normal gait, normal posture - Psychiatric oriented to time, oriented to person, oriented to place, speech is normal breast exam: BRA: 38 B inspection: bilateral grade 2 ptosis palpation: right breast: Multi-positional exam no dominant masses or nodules of concern Right axilla: No adenopathy of concern Left breast: Multiple positional exam fibrocystic changes no dominant masses or nodules of concern Left axilla: No adenopathy of concern Particular attention at the right nipple does not reveal any bloody discharge or discharge of any type on today's examination Results mammogram results reviewed, patient did not bring her films and will bring these for next week Assessment and Plan Assessment: Impression: 1. Seizures 2. 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 HTN 4. high triglycerides 5. COPD 6. history of blood clots in her legs patient is presently on Plavix and takes Advil 7. Mammographic abnormality left breast/stereotactic core biopsy of 2 areas 8. Right breast bloody nipple discharge which has stopped 9. Family history of cancer Plan: 1. Stereotactic core biopsy of 2 areas in the right breast 2. Close surveillance of right breast in the bloody nipple discharge occurs again would like to see patient immediately 3. Encourage patient to stop smoking 4. Medical management of medical conditions 5. Patient should stop Plavix and Advil one week prior to biopsy, the okay by primary care doctor Cc: Candy Monson Risks and benefits of stereotactic core biopsy were discussed with the patient and her daughter. Risks include but are not limited to bleeding, infection, reaction to the anesthetic. Additionally at the lesion was felt to be discordant it may be necessary for operative resection. They understand and wish to proceed. Alternatives such as watchful waiting or open biopsy initially are discussed but not recommended. encounter 30 minutes > 50 % of time spent in planning and counselling
== END | disposition home or self-care (01) ==
LOC: WWCWWP 09:39
PROVIDERS: ATTEND Surgery
DX: Z53.9 Procedure and treatment not carried out, unspecified reason (principal)

== ENCOUNTER → 2020-03-11 | Day surgery (SDC) | payer MEDICARE, BC ==
[2020-03-11 07:33] VITALS: PULSE 66; RESP 16; TEMP 97.7
--- NOTE | 2020-03-11 10:08 | P.PCN ---
Date of Procedure: 03/11/20 Preoperative Diagnosis: Microcalcifications of concern 2 areas of the left breast 1 is a nodular density with internal calcifications mid breast and the second is in determining group in the far posterior lower left breast stereotactic core biopsy recommended for both of these lesions Postoperative Diagnosis: Same Procedure(s) Performed: Stereotactic core biopsy 2 groups of microcalcification in the left breast Anesthesia: local Surgeon: Lorena Corbett Pathology: other (Microcalcifications noted in both specimensSpecimen a posterior inferior lesion with a secure evelyn clipSpecimen the anterior lesion with a tri-evelyn clipMicrocalcifications were noted in both lesions) Condition: stable Indications for Procedure: micro calcifications of concern 2 sites left breast Operative Findings: 2 sets left breast with microcalcifications/both sides felt to be adequately sampled Description of Procedure: The patient is a 51-year-old white female who on the mammogram was noted to have 2 areas of calcification in the left breast which are considered suspicious. It was recommended she undergo stereotactic core biopsy of both sites. Risk and benefits of the procedure were discussed with the patient and she chose to proceed. Alternatives such as watchful waiting or open biopsy were not recommended. The patient was taken to the stereotactic core biopsy room. Greens Cutter film was obtained. The more posterior lesion was approached initially. CC from below approach was utilized. The lesion was seen on nutritionalist film and the lesion was targeted. The breast was prepped using Betadine. 20 mL of 1% lidocaine was used to anesthetize the area of concern. A 9-gauge vacuum-assisted core rotating biopsy needle was driven to the correct coordinates. The needle was fired. Post fire film revealed the needle to be in the correct location. 7 core specimens were obtained. Radiograph of the specimen revealed the area of concern had been sampled. A secure evelyn clip was placed. Following this the second lesion which was the more anterior lesion was targeted. This was done via a medial to lateral approach. The lesion was seen on nutritionalist film. The lesion was targeted. The breast was prepped using Betadine. 14 mL of 1% lidocaine was used to anesthetize the area of concern. A 9-gauge vacuum- assisted core rotating biopsy needle was driven to the correct coordinates. 12 core samples were obtained. Radiograph of the specimen revealed the area of concern had been sampled. A tri-evelyn clip was placed. The patient tolerated the procedure in stable condition. Specimens are sent to pathology. The patient will follow-up with Dr. Griffith next week for results. Site a: Posterior lesion secure evelyn clip placed Site B anterior lesion tri-evelyn clip placed Radiograph of both specimens revealed calcifications of concern had been sampled.
[2020-03-11 12:03] VITALS: BP 131/82
--- NOTE | 2020-03-11 16:19 | MM ---
EXAMINATION TYPE: MG stereo VAD BX LT DATE OF EXAM: 03/11/2020 COMPARISON: NONE CLINICAL HISTORY: Abnormal mammogram TECHNIQUE: Stereotactic guided core biopsy of left breast. FINDINGS: The shortness pathway for biopsy was chosen. Shortness pathway was inferior cranial caudal approach. Radiology performed the localization. The procedure was performed by the surgeon. A vacuum assisted biopsy gun was used to obtain multiple core samples. Specimen 1: Calcifications are within the specimen. A second biopsy site was localized. The shortness pathway for biopsy was chosen. Shortness pathway was medial to lateral approach. Radiology performed the localization. The procedure was performed by the surgeon. A vacuum assisted biopsy gun was used to obtain multiple core samples. Progress specimen to: Calcifications are within the specimen. Postprocedure mammogram: Post biopsy mammogram shows the clip to appear in satisfactory position relative to the targeted areas of concern on the preprocedure images. IMPRESSION: 1. Successful stereotactic core biopsies, 2 locations. Recommendations: 1. Recommendations are pending pathology results. Pathology Results: Benign A. LEFT BREAST, SITE A POSTERIOR, STEREOTACTIC CORE BIOPSY: Fibrocystic changes including sclerosing adenosis with calcifications, apocrine metaplasia, cysts and fibrosis. B. LEFT BREAST, SITE B ANTERIOR, STEREOTACTIC CORE BIOPSY: Fibrocystic changes including cysts with intraluminal calcifications, fibrosis, and apocrine metaplasia. Recommendation Follow up mammogram of the left breast in 6 months. BO
== END ==
LOC: RADMAMWWP 06:56
PROVIDERS: ATTEND Surgery
DX: N60.12 Diffuse cystic mastopathy of left breast (principal); N60.22 Fibroadenosis of left breast; N60.82 Other benign mammary dysplasias of left breast
CPT/HCPCS: 88305; 19081; 19082; A4648; J2001

== ENCOUNTER → 2020-03-18 | Outpatient (CLI) | payer MEDICARE, BC ==
--- NOTE | 2020-03-18 13:14 | P.PN ---
Subjective Progress Note Date: 03/18/20 Principal diagnosis: Stereotactic breast biopsy results Kellen is a 59 -year-old white female status post stereotactic core biopsy of 2 areas in the left breast on . The posterior site revealed fibrocystic changes including sclerosing adenosis with calcifications. The anterior site revealed fibrocystic changes with intraluminal calcifications fibrosis and apocrine metaplasia. The patient has no complaints related to the procedure. Objective - Vital Signs Vital signs: Vital Signs Temp 98.1 F 03/18/20 13:00 Pulse 73 03/18/20 13:00 Resp 16 03/18/20 13:00 BP 109/74 03/18/20 13:00 Pulse Ox 95 03/18/20 13:00 Intake & Output 03/17/20 03/18/20 03/18/20 18:59 06:59 18:59 Weight 77.111 kg - Exam BMI 28.3 - Constitutional General appearance: Present: average body habitus - EENT Eyes: Present: EOMI ENT: Present: hearing grossly normal - Respiratory Respiratory: bilateral: CTA - Cardiovascular Rhythm: regular Heart sounds: normal: S1, S2 - Integumentary Integumentary Comment(s): Biopsy sites clean and dry no evidence of infection Integumentary: Present: normal turgor Assessment and Plan Assessment: Impression: 1. Patient status post stereotactic core biopsy of 2 sites in the left breast. Benign 2. Fibrocystic breast changes Plan: 1. Repeat left breast mammogram in 6 months with physician exam at that time 2. Repeat bilateral mammogram in January 2021 CC: Ema Monson, Dr. Mohinder Patino encounter 15 minutes, > 50% of time in planning and counselling
[2020-03-18 13:37] VITALS: BP 109/74; PULSE 73; RESP 16; TEMP 98.1
== END | disposition home or self-care (01) ==
LOC: WWCWWP 12:33
PROVIDERS: ATTEND Surgery
DX: Z53.9 Procedure and treatment not carried out, unspecified reason (principal)

== ENCOUNTER → 2020-09-09 | Outpatient (CLI) | payer MEDICARE, BC ==
--- NOTE | 2020-09-09 12:06 | MM ---
Reason for exam: follow-up at short interval from prior study. Last mammogram was performed 6 months ago. History: Patient is postmenopausal. Benign MG stereo VAD BX addl LT of the left breast, March 11, 2020. Benign MG stereo VAD BX LT of the left breast, March 11, 2020. Took estrogen for 10 years. Took progesterone for 10 years. Physical Findings: Nurse did not find any significant physical abnormalities on exam. MG 3D Diag Mammo W/Cad LT CC and MLO view(s) were taken of the left breast. Prior study comparison: March 11, 2020, mammogram. There are scattered fibroglandular densities. These results were verbally communicated with the patient and result sheet given to the patient on 09/09/20. ASSESSMENT: Benign, BI-RAD 2 RECOMMENDATION: Routine screening mammogram of both breasts in 6 months. Back on schedule for 2020.
== END | disposition home or self-care (01) ==
LOC: RADMAMWWP 10:12
PROVIDERS: ATTEND Surgery
DX: N64.89 Other specified disorders of breast (principal); Z78.0 Asymptomatic menopausal state
CPT/HCPCS: 77065; G0279; 77061

== ENCOUNTER → 2020-09-16 | Outpatient (CLI) | payer MEDICARE, BC ==
[2020-09-16 11:16] VITALS: BP 123/84; PULSE 85; RESP 18; TEMP 98.2
--- NOTE | 2020-09-16 11:44 | P.PN ---
Subjective Progress Note Date: 09/16/20 Principal diagnosis: Surveillance status post posterior biopsy of the left breast March 2020 Kellen is a 60-year-old female seen in consultation for Ema Monson regarding a mammographic abnormality in the left breast. [place] [address]. The recommendation was for a repeat diagnostic mammogram of the left breast. On the diagnostic mammogram a nodular density with internal calcifications was noted as well as a second indeterminate group of calcifications in the far posterior lower left breast. Stereotactic core biopsy of both areas was recommended although it was noted that it might be difficult to do a stereo biopsy of the posterior group. The reason for the mammogram was that the patient was having some bleeding from her right nipple. This occurred for approximately 3-4 days and then stopped. She has not had any since that time. However, this prompted a bilateral mammogram the results of which are noted above. Does not have any trauma or infection in the breast. She has not had any breast surgery. She has not had any breast pain. Patient is not concerned about any lumps masses or nodules in either breast. She has not had any further bloody nipple discharge. She did undergo left breast are detected core biopsy [place] 2 [place] [id number] both of which were benign. She now has a left breast mammogram performed on 5721 this is felt to be benign BIRADS 2. Caffeine: 3 pops per day Nicotine: 1 Pack per day for 43 years chocolate: rare Family history: brother: Lung cancer father: prostate, colon, stomach cancers mother: skin cancer Hormonal History: menarche: 12 Ab1, miscarriage 1, age at : 21, breast fed: no menopause: hysterectomy at 39, took ovaries related to pain BCP: 5 years hormones: Premarin for approximately 21 years stopped 5 years ago Surgical history: 1. Tubal ligation appendectomy 2. Total abdominal hysterectomy 3. 2 brain aneurysms 4. gallbladder 5. right shoulder two surgeries Medical History: 1. Seizures 2. 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 HTN 4. high triglycerides 5. COPD 6. history of blood clots in her legs patient is presently on Plavix and takes Advil Social History: Nicotine: One pack per day for approximately 38 years Alcohol: Negative Drugs: Negative - Constitutional Constitutional: Denies chills, Denies fever - EENT Comment: mini strokes affected eyes Eyes: bilateral as per HPI Ears: deny: decreased hearing, tinnitus Ears, nose, mouth and throat: Reports headache - Breasts Breasts: bilateral: as per HPI - Cardiovascular Cardiovascular: Reports high blood pressure - Respiratory Comment: COPD/ smoker for 38 years - Gastrointestinal Comment: Hiatal hernia with reflux - Genitourinary (Female) Genitourinary: Denies dysuria, Denies hematuria - Menstruation Menstruation: Reports post hysterectomy - Musculoskeletal Comment: back pain - Integumentary Integumentary: Denies pruritus, Denies rash - Neurological Comment: mini strokes during brain surgery to fix aneurysms Neurological: Denies numbness, Denies weakness - Psychiatric Psychiatric: Reports anxiety, Reports depression - Endocrine Endocrine: Reports fatigue, Reports weight change - Hematologic/Lymphatic Comment: Patient is on Plavix and takes Advil does not take aspirin Hematologic/Lymphatic: Reports as per HPI - Allergic/Immunologic Allergic/Immunologic: Reports as per HPI Objective - Vital Signs Vital signs: Vital Signs Temp 98.2 F 09/16/20 11:13 Pulse 85 09/16/20 11:13 Resp 18 09/16/20 11:13 BP 123/84 09/16/20 11:13 Pulse Ox 100 09/16/20 11:13 Intake & Output 09/15/20 09/16/20 09/16/20 18:59 06:59 18:59 Weight 77.111 kg - Exam BMI 28.3 - Constitutional General appearance: Present: average body habitus - EENT Eyes: Present: EOMI ENT: Present: hearing grossly normal - Neck Neck: Present: normal ROM - Respiratory Respiratory: bilateral: CTA - Cardiovascular Rhythm: regular Heart sounds: normal: S1, S2 - Integumentary Integumentary: Present: normal turgor - Musculoskeletal Musculoskeletal: Present: gait normal - Psychiatric Psychiatric: Present: A&O x's 3, appropriate affect, intact judgment & insight - Additional findings Additional findings: Breat exam: BRA: 38B insepection: Ptosis grade 2 Palpation: Right breast: Positional exam fibrocystic changes, no dominant masses or nodules of concern Right axilla: No adenopathy of concern Left breast: Multi-positional exam fibrocystic changes, no dominant masses or nodules of concern Left axilla: No adenopathy of concern Assessment and Plan Assessment: Impression: 1. Seizures 2. 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 HTN 4. high triglycerides 5. COPD 6. history of blood clots in her legs patient is presently on Plavix and takes Advil 7. Recent left breast mammogram 5721 benign BIRADS 2 Plan: 1. Repeat bilateral mammogram in January with physician exam at that time 2. patient to call sooner if any thing of concern 3. Encouraged to stop smoking and decrease caffeine intake patient understands and will consider this Cc: Ema Monson
== END ==
LOC: WWCWWP 10:36
PROVIDERS: ATTEND Surgery
DX: Z12.31 Encounter for screening mammogram for malignant neoplasm of breast (principal); R56.9 Unspecified convulsions; M47.812 Spondylosis without myelopathy or radiculopathy, cervical region; I10 Essential (primary) hypertension; E78.1 Pure hyperglyceridemia; J44.9 Chronic obstructive pulmonary disease, unspecified; F17.210 Nicotine dependence, cigarettes, uncomplicated; Z79.01 Long term (current) use of anticoagulants; Z86.718 Personal history of other venous thrombosis and embolism; Z88.1 Allergy status to other antibiotic agents; Z88.0 Allergy status to penicillin; Z88.2 Allergy status to sulfonamides; Z88.8 Allergy status to other drugs, medicaments and biological substances

== ENCOUNTER → 2021-03-17 | Outpatient (CLI) | payer MEDICARE, BC ==
--- NOTE | 2021-03-20 10:50 | MM ---
Reason for exam: screening (asymptomatic). Last mammogram was performed 6 months ago. History: Patient is postmenopausal. Benign MG stereo VAD BX addl LT of the left breast, March 11, 2020. Benign MG stereo VAD BX LT of the left breast, March 11, 2020. Took estrogen for 10 years. Took progesterone for 10 years. Physical Findings: A clinical breast exam by your physician is recommended on an annual basis and results should be correlated with mammographic findings. MG 3D Screening Mammo W/Cad Bilateral CC and MLO view(s) were taken. Prior study comparison: September 09, 2020, left breast MG 3d diag mammo w/cad LT. Previous mammotome biopsy in the left breast. No significant changes when compared with prior studies. ASSESSMENT: Benign, BI-RAD 2 RECOMMENDATION: Routine screening mammogram of both breasts in 1 year.
== END | disposition home or self-care (01) ==
LOC: RADMAMWWP 10:00
PROVIDERS: ATTEND Surgery
DX: Z12.31 Encounter for screening mammogram for malignant neoplasm of breast (principal); Z78.0 Asymptomatic menopausal state
CPT/HCPCS: 77063; 77067